=== PATIENT | male | born 1970 | race Caucasian/White ===

== ENCOUNTER 2016-10-22 06:54 | Day surgery (SDC) | payer MEDICAID ==
[~2016-10-22] VITALS: Ht 165.1 cm; Wt 69.5 kg
[~2016-10-22 06:54] MED LIST: ALBU8.5H IH; IBUP-2070 PO; MONT10TA21 PO; SUCR1TAB PO
[2016-10-22] MEDS ORDERED: SODIUM CHLORIDE 0.9% 1,000 ML IV ONE ×2 (07:00→07:04)
[2016-10-22] MEDS ORDERED: MIDAZOLAM HCL 2 MG/2 ML VIAL ONE (07:45)
[2016-10-22] MEDS ORDERED: FentaNYL CITRATE-PF 100 MCG/2 ML VIAL ONE (07:45)
[2016-10-22] MEDS ORDERED: MethylPREDNISolone SOD SUCC 125 MG/2 ML VIAL IVP ONE (09:00)
[2016-10-22] MEDS ORDERED: MethylPREDNISolone SOD SUCC 125 MG/2 ML VIAL ONE (09:32)
[2016-10-22] MEDS ORDERED: BENZOCAINE 20% 50 MCG/SPRAY 57 GM TP ONE (12:00)
[2016-10-22] MEDS ORDERED: LIDOCAINE HCL 4% 50 ML SOLUTION TP ONE (12:00)
[2016-10-22] MEDS ORDERED: ALBUTEROL SULFATE 2.5 MG/0.5 ML NEB SOLUTION NEB ONE (12:00)
[2016-10-22] MEDS ORDERED: LIDOCAINE HCL 2% 30 ML JELLY TP ONE (12:00)
[2016-10-22] MEDS ORDERED: OXYGEN THERAPY IH SCH (20:00)
== END 2016-10-22 10:25 | disposition home or self-care (01) ==
LOC: SURGERY 06:54
PROVIDERS: ATTEND Internal Medicine Critical Care Medicine
DX: J38.4 Edema of larynx (principal); B37.0 Candidal stomatitis; J44.9 Chronic obstructive pulmonary disease, unspecified; F17.210 Nicotine dependence, cigarettes, uncomplicated; Z72.89 Other problems related to lifestyle; Z98.890 Other specified postprocedural states
CPT/HCPCS: 31623; 31624; 71010; 87015 ×2; 87070; 87101; 87205; 87220; 88108; 88312; J2250; J2930; J3010; J7030

== ENCOUNTER 2017-09-17 16:03 | Emergency (ER) | payer MEDICAID ==
[~2017-09-17] VITALS: Ht 167.6 cm; Wt 60.0 kg
[~2017-09-17 16:03] MED LIST changes: -ALBU8.5H IH; +ALBU8.5H8 IH
[2017-09-17] MEDS ORDERED: ASPI81 PO (16:33)
[2017-09-17 17:03] LABS: GLUCOSE,POINT OF CARE 149 MG/DL (70-110)
[2017-09-17 17:29] LABS: ANION GAP 11 mmol/L (8-16); CALCIUM, TOTAL 8.6 mg/dL (8.8-10.5); CARBON DIOXIDE 29 mmol/L (22-29); CHLORIDE 110 mmol/L (98-107); CREATININE 0.66 mg/dL (0.60-1.30); GLOMERULAR FILTR. RATE CALC > 60 mL/min (>60); GLUCOSE,RANDOM 137 mg/dL (70-110); POTASSIUM 3.8 mmol/L (3.5-5.1); SODIUM SERUM 150 mmol/L (136-145); UREA NITROGEN, BLOOD 5 mg/dL (7-18)
[2017-09-17 17:30] LABS: BASOPHILS % (AUTO) 0.7 % (0.0-2.0); EOSINOPHILS % (AUTO) 0.7 % (1.0-6.0); HEMATOCRIT 41.9 % (41-53); HEMOGLOBIN 14.1 g/dL (13.5-17.5); LYMPHOCYTES # (AUTO) 2.6 K/uL (1.0-4.8); LYMPHOCYTES % (AUTO) 44.3 % (22.0-44.0); MEAN CORPUSCULAR HEMOGLOBIN 36.4 pg (26.0-34.0); MEAN CORPUSCULAR HGB CONC 33.6 G/dL (31.0-37.0); MEAN CORPUSCULAR VOLUME 108 fL (80-100); MONOCYTES # (AUTO) 0.5 K/uL (0.1-1.0); MONOCYTES % (AUTO) 9.4 % (2.0-9.0); NEUTROPHILS # (AUTO) 2.6 K/uL (1.8-7.7); NEUTROPHILS % (AUTO) 44.9 % (40.0-70.0); PLATELET COUNT (AUTO) 111 K/uL (150-450); RED BLOOD CELL COUNT(AUTO) 3.87 MIL/uL (4.50-5.90); RED CELL DISTRIBUTION WIDTH 15.4 % (11.5-14.5)
[2017-09-17 17:34] LABS: APPEARANCE,URINE CLEAR (CLEAR); BILIRUBIN,URINE NEGATIVE (NEGATIVE); GLUCOSE, URINE (UA) NEGATIVE (NEGATIVE); KETONES,URINE NEGATIVE (NEGATIVE); LEUKOCYTE ESTERASE ,URINE NEGATIVE (NEGATIVE); NITRATE,URINE NEGATIVE (NEGATIVE); OCCULT BLOOD,URINE NEGATIVE (NEGATIVE); PROTEIN,URINE NEGATIVE (NEGATIVE); UROBILINOGEN,URINE 0.2 mg/dL (<=1.0)
[2017-09-17 17:35] LABS: ALANINE AMINOTRANSFERASE 81 U/L (12-78); ALBUMIN 3.2 g/dL (3.4-5.0); ALKALINE PHOSPHATASE 188 U/L (46-116); ASPARTATE AMINOTRANSFERASE 136 U/L (15-37); BILIRUBIN,TOTAL 0.4 mg/dL (0.1-1.0); LIPASE 313 U/L (73-393); TOTAL PROTEIN, SERUM 6.9 g/dL (6.4-8.2)
[2017-09-17 17:50] LABS: RBC,URINE None Seen /HPF (0-2); WBC,URINE None Seen /HPF (0-5)
[2017-09-17 17:51] LABS: BACTERIA,URINE Rare /HPF (None Seen); SQUAMOUS EPITHELIAL CELL,UR Rare /LPF (None Seen)
[2017-09-17 19:06] LABS: B-TYPE NATRIURETIC PEPTIDE 10 pg/mL (0-100)
[2017-09-17 21:43] VITALS: BP 120/68
== END 2017-09-17 21:52 | disposition home or self-care (01) ==
LOC: EMS 16:05
DX: R00.2 Palpitations (principal); R07.89 Other chest pain; R74.0 Nonspecific elevation of levels of transaminase and lactic acid dehydrogenase [LDH]; R42 Dizziness and giddiness
CPT/HCPCS: 82948; 82962; 93005; 99285

== ENCOUNTER 2017-11-19 09:14 | Day surgery (SDC) | payer MEDICAID ==
[~2017-11-19] VITALS: Ht 165.1 cm; Wt 60.5 kg
[~2017-11-19 09:14] MED LIST changes: +ASPI81 PO
[2017-11-19] MEDS ORDERED: METOPROLOL TARTRATE 50 MG TABLET PO ONE (09:30)
[2017-11-19] MEDS ORDERED: 0.9% SODIUM CHLORIDE 10 ML SYRINGE IVP PRN (09:30)
[2017-11-19] MEDS ORDERED: METOPROLOL TARTRATE 50 MG TABLET ONE (09:51)
[2017-11-19 10:12] LABS: ANION GAP 12 mmol/L (8-16); CALCIUM, TOTAL 8.5 mg/dL (8.8-10.5); CARBON DIOXIDE 28 mmol/L (22-29); CHLORIDE 104 mmol/L (98-107); CREATININE 0.61 mg/dL (0.60-1.30); GLOMERULAR FILTR. RATE CALC > 60 mL/min (>60); GLUCOSE,RANDOM 84 mg/dL (70-110); SODIUM SERUM 144 mmol/L (136-145); UREA NITROGEN, BLOOD 8 mg/dL (7-18)
[2017-11-19] MEDS ORDERED: SODIUM CHLORIDE 0.9% 100 ML ONE (10:32)
[2017-11-19] MEDS ORDERED: IOVERSOL 350 MG/ML 150 ML VIAL ONE (10:32)
[2017-11-19] MEDS ORDERED: METOPROLOL TARTRATE 5 MG/5 ML VIAL ONE (10:50)
[2017-11-19] MEDS ORDERED: NITROGLYCERIN 400 MCG/SUBLINGUAL SPRAY 4.9 GM BOTTLE SL ONE (10:50)
== END 2017-11-19 11:45 | disposition home or self-care (01) ==
LOC: SURGERY 09:14 → EDSTATUS 11:00 → SURGERY 11:45
PROVIDERS: ATTEND Internal Medicine Cardiovascular Disease
DX: I25.10 Atherosclerotic heart disease of native coronary artery without angina pectoris (principal); J98.09 Other diseases of bronchus, not elsewhere classified; F17.210 Nicotine dependence, cigarettes, uncomplicated; J44.9 Chronic obstructive pulmonary disease, unspecified; I08.2 Rheumatic disorders of both aortic and tricuspid valves; Z79.82 Long term (current) use of aspirin; Z79.4 Long term (current) use of insulin; Z79.899 Other long term (current) drug therapy; Z72.89 Other problems related to lifestyle; Z98.890 Other specified postprocedural states
CPT/HCPCS: 36415; 75574; 80048; 93005 ×2; J7050; Q9967; J3490

== ENCOUNTER 2018-12-06 05:46 | Day surgery (SDC) | payer MEDICAID ==
[~2018-12-06] VITALS: Ht 165.1 cm; Wt 56.8 kg
[2018-12-06] MEDS ORDERED: BENZOCAINE 20% 50 MCG/SPRAY 57 GM TP ONE (05:47)
[2018-12-06] MEDS ORDERED: ALBUTEROL SULFATE 2.5 MG/0.5 ML NEB SOLUTION NEB ONE (05:47)
[2018-12-06] MEDS ORDERED: LIDOCAINE 2% 30 ML JELLY TP ONE (05:47)
[2018-12-06] MEDS ORDERED: LIDOCAINE 4% 50 ML SOLUTION TP ONE (05:47)
[2018-12-06] MEDS ORDERED: SODIUM CHLORIDE 0.9% 1,000 ML IV ONE ×2 (06:20→07:00)
[2018-12-06] MEDS ORDERED: ESCI10TA PO (06:36)
[2018-12-06] MEDS ORDERED: FentaNYL CITRATE-PF 100 MCG/2 ML VIAL ONE (07:32)
[2018-12-06] MEDS ORDERED: MIDAZOLAM HCL 2 MG/2 ML VIAL ONE (07:32)
[2018-12-06] MEDS ORDERED: MethylPREDNISolone SOD SUCC 125 MG/2 ML VIAL IVP ONE (08:30)
[2018-12-06] MEDS ORDERED: MethylPREDNISolone SOD SUCC 125 MG/2 ML VIAL ONE (08:32)
[2018-12-06] MEDS ORDERED: OXYGEN THERAPY IH SCH (20:00)
== END 2018-12-06 10:00 | disposition home or self-care (01) ==
LOC: SURGERY 05:46
PROVIDERS: ATTEND Internal Medicine Critical Care Medicine
DX: J38.4 Edema of larynx (principal); B37.0 Candidal stomatitis; F17.210 Nicotine dependence, cigarettes, uncomplicated; J44.9 Chronic obstructive pulmonary disease, unspecified; F43.10 Post-traumatic stress disorder, unspecified; E78.00 Pure hypercholesterolemia, unspecified; I42.9 Cardiomyopathy, unspecified; I25.10 Atherosclerotic heart disease of native coronary artery without angina pectoris; Z72.89 Other problems related to lifestyle; Z98.890 Other specified postprocedural states; Z79.82 Long term (current) use of aspirin
CPT/HCPCS: 31623; 31624; 71045; 87015; 87070; 87101; 87205; 87206; 87220; 88108; 88312; J2250; J2930; J3010; J7030